=== PATIENT | male | born 1965 | race Caucasian/White ===

== ENCOUNTER 2017-09-17 16:59 | Emergency (ER) | payer OTHER ==
[~2017-09-17] VITALS: Ht 170.2 cm; Wt 99.7 kg
[~2017-09-17 16:59] MED LIST: CHOL100010 PO; CYAN100020 PO; FEXO180T PO; IBUP-103 PO; MULT-506 PO
[2017-09-17 17:07] VITALS: TEMP 36.9; Ht 170.2 cm; Wt 99.7 kg
[2017-09-17] MEDS ORDERED: SODIUM CHLORIDE 0.9% 1000ML 1,000 ML IV STA (17:19)
[2017-09-17 17:42] LABS: BASO % 0.1 %; BASO ABS # 0.01 K/uL (0-0.2); COMPLETE YES; EOS % 0.6 %; HEMATOCRIT 47.9 % (42-52); IG% 0.3 %; LYMPH ABS # 1.18 K/uL (1.2-3.4); MEAN CELL VOLUME 89.2 fL (80-100); MEAN CORPUSCULAR HEMOGLOBIN 31.3 pg (25-34); MEAN CORPUSCULAR HGB CONC 35.1 g/dl (32-36); MEAN PLATELET VOLUME 10.5 fL (7.4-10.4); MONO % 5.2 %; NEUT % 83.8 %; PLATELET COUNT 257 K/uL (130-400); RED BLOOD COUNT 5.37 M/uL (4.7-6.1); WHITE BLOOD COUNT 11.83 K/uL (4.8-10.8)
[2017-09-17] MEDS ORDERED: MoRPHine SULFATE 4 MG/ML 1 ML CARP\\VIAL IV STA (17:49)
[2017-09-17] MEDS ORDERED: ONDANSETRON INJ 2 MG/ML 2 ML VIAL IV STA (17:49)
[2017-09-17 18:01] LABS: BUN/CREATININE RATIO 18.4 (10-20); CALCIUM 9.1 mg/dl (8.5-10.1); CREATININE 1.16 mg/dl (0.60-1.40); POTASSIUM 3.7 mmol/L (3.5-5.1)
[2017-09-17] MEDS ORDERED: OPTIRAY 320 IV PRN (18:15)
--- NOTE | 2017-09-17 19:04 | DIAGNOSTIC IMAGING REPORT ---
CT SCAN OF THE ABDOMEN AND PELVIS WITH IV CONTRAST CLINICAL HISTORY: Left lower quadrant abdominal pain. COMPARISON STUDY: No priors. TECHNIQUE: Following the IV administration of 120 cc of Optiray 320, CT scan of the abdomen and pelvis is performed from the lung bases to the proximal femora. Images are reviewed in the axial, sagittal, and coronal planes. IV contrast was administered without complication. A dose lowering technique was utilized adhering to the principles of ALARA. CT DOSE: 871.69 mGy.cm FINDINGS: Lung bases: The heart is top normal in size and without pericardial effusion. The lung bases are clear. Liver: The contrast-enhanced liver is enlarged, measuring 19.4 cm in length. The liver demonstrates diminished attenuation consistent with hepatic steatosis. Fatty sparing is seen adjacent to gallbladder fossa. There is no intrahepatic biliary ductal dilatation. The hepatic veins and portal veins are patent. Gallbladder: Unremarkable. Spleen: Normal in size and attenuation. Pancreas: Unremarkable. Adrenal glands: Unremarkable. Kidneys: The contrast enhanced kidneys are normal in size and without hydronephrosis. The kidneys enhance symmetrically. Abdominal vasculature: The abdominal aorta is normal in course and caliber. Stomach and bowel: There is moderate sigmoid diverticulosis without CT evidence of acute diverticulitis. The stomach is distended and filled with fluid. The proximal small bowel loops are also distended and fluid-filled measuring up to 3.3 cm in caliber. These gradually transitions to decompressed distal small bowel loops. No transition point is identified. Mild wall thickening suggested involving a loop of small bowel the left lower quadrant image #227. The appendix is well-visualized and normal. Peritoneum: There is no intraperitoneal free air or abdominal ascites. There is a small fat-containing umbilical hernia. Lymphadenopathy: None. Pelvic viscera: The bladder, prostate, and seminal vesicles are normal as visualized. There is a fat-containing right inguinal hernia. Skeletal structures: No lytic or blastic lesions are seen. IMPRESSION: 1. The stomach is distended and filled with fluid. The proximal small bowel is also distended and fluid-filled, and this gradually transitions to relatively normal caliber distal small bowel. No discrete transition point is identified. Additionally, mildly thick walled small bowel are questioned in the left lower quadrant. The appearance suggests a nonspecific enteritis. Clinical correlation required. 2. No high-grade small bowel obstruction is seen. 3. No intraperitoneal free air is identified. 4. Moderate sigmoid diverticulosis without CT evidence of acute diverticulosis. 5. Hepatomegaly and mild hepatic steatosis. 6. Additional findings as above. Electronically signed by: Jf Avila M.D. 09/17/2017 7:03 PM Dictated Date/Time: 09/17/2017 6:56 PM
[2017-09-17 19:11] LABS: URINE APPEARANCE CLEAR (CLEAR); URINE BILIRUBIN NEG (NEG); URINE COLOR YELLOW; URINE NITRITE NEG (NEG); URINE SPECIFIC GRAVITY 1.037 (1.000-1.030); UROBILINOGEN NEG (NEG)
[2017-09-17 19:25] LABS: MANUAL MICROSCOPIC REQUIRED? NO; REVIEW REQ? NO
[2017-09-17] MEDS ORDERED: ONDA4TAB10 SL (19:30)
[2017-09-17] MEDS ORDERED: OXYC1TAB3 PO (19:30)
[2017-09-17 19:43] VITALS: BP 154/89; PULSE 79; O2SAT 98
--- NOTE | 2017-09-17 20:07 | EMERGENCY ROOM VISIT NOTE ---
History First contact with patient: 17:19 Chief Complaint: ABDOMINAL PAIN Stated Complaint: ABDOMINAL PAIN History of Present Illness The patient is a 51 year old male who presents to the Emergency Room with complaints of left lower and lower central abdominal pain that is worsening since awakening this morning. The patient reports that he did have an episode of vomiting this morning, and loose stools approximately 3 hours ago. He reports the pain is radiating into the lower back as well. He denies any difficulty urinating. The patient also reports a low-grade fever of 99-100F area the patient reports that he just underwent a colonoscopy last Sunday by Dr. Felix at [facility]. He was found to have diverticulosis and a few polyps that were removed. He has not heard back biopsy results. The patient denies any bloody stool or pain immediately after his colonoscopy. The patient currently rates his overall discomfort a 6 out of 10. He reports that the pain is now mostly constant and worsened with movement and ambulation. The pain is somewhat better when he sits up. Review of Systems HEENT: Denies dizziness, visual problems, hearing loss, tinnitus. Denies difficulty swallowing or oral lesions. PULMONARY: Denies cough, shortness of breath, sputum production or hemoptysis. CARDIOVASCULAR: Denies chest pain, palpitations, dyspnea on exertion, orthopnea or peripheral edema. GASTROINTESTINAL: See history of present illness. GENITOURINARY: Denies dysuria, frequency, urgency or nocturia. NEUROLOGIC: Denies history of epilepsy, CVA, TIA or chronic headaches. MUSCULOSKELETAL: Denies history of joint tenderness/swelling. SKIN: Denies rashes or lesions. PSYCHIATRIC: Denies history of depression or mental illness. ENDOCRINE: Denies history of diabetes or thyroid disorders. Past Medical/Surgical History Medical Problems: (1) Diverticulosis (2) Separation of right acromioclavicular joint Social History Smoking Status: Never Smoker Current/Historical Medications Scheduled Cholecalciferol (Vitamin D), 1,000 INTER.UNIT PO DAILY Cyanocobalamin (Vitamin B12), 1,000 MCG PO DAILY Fexofenadine Hcl ([place] Allergy), 180 MG PO DAILY Multivitamin (Multivitamin), 1 TAB PO DAILY Ondasetron Odt (Zofran Odt), 4 MG SL Q6H Scheduled PRN Ibuprofen Tab (Advil), 800 MG PO Q8 PRN for Pain or Fever Oxycodone Ir (Roxicodone Ir), 1-2 TAB PO Q4H PRN for Pain Physical Exam Vital Signs Date Time Temp Pulse Resp B/P (MAP) Pulse Ox O2 Delivery O2 Flow Rate FiO2 09/17/17 19:43 79 18 154/89 98 09/17/17 17:07 36.9 84 20 163/100 95 Room Air Physical Exam CONSTITUTIONAL: Healthy and well nourished. Alert and oriented X 3 with positive affect. Patient appears in moderate discomfort. HEENT: Normocephalic, atraumatic. Pupils equal, round and reactive. No scleral icterus or conjunctival injection/pallor. NECK: Full active range of motion without discomfort. RESPIRATORY: Clear to auscultation bilaterally with no wheezing, crackles, rhonchi or stridor. CARDIOVASCULAR: Regular rate and rhythm with no murmurs, rubs or gallops. GASTROINTESTINAL: Bowel sounds present in all quadrants. The patient has diffuse left lower quadrant tenderness to palpation without rigidity, guarding or rebound. Negative CVA tenderness. No right lower quadrant tenderness to palpation. MUSCULOSKELETAL: Full range of motion of all joints without discomfort. INTEGUMENTARY: No rash or other significant dermatologic conditions noted. HEMATOLOGIC: No ecchymosis or petechiae. NEUROLOGIC: No focal neurologic deficits noted. Medical Decision & Procedures ER Provider Diagnostic Interpretation: CT SCAN OF THE ABDOMEN AND PELVIS WITH IV CONTRAST CLINICAL HISTORY: Left lower quadrant abdominal pain. COMPARISON STUDY: No priors. TECHNIQUE: Following the IV administration of 120 cc of Optiray 320, CT scan of the abdomen and pelvis is performed from the lung bases to the proximal femora. Images are reviewed in the axial, sagittal, and coronal planes. IV contrast was administered without complication. A dose lowering technique was utilized adhering to the principles of ALARA. CT DOSE: 871.69 mGy.cm FINDINGS: Lung bases: The heart is top normal in size and without pericardial effusion. The lung bases are clear. Liver: The contrast-enhanced liver is enlarged, measuring 19.4 cm in length. The liver demonstrates diminished attenuation consistent with hepatic steatosis. Fatty sparing is seen adjacent to gallbladder fossa. There is no intrahepatic biliary ductal dilatation. The hepatic veins and portal veins are patent. Gallbladder: Unremarkable. Spleen: Normal in size and attenuation. Pancreas: Unremarkable. Adrenal glands: Unremarkable. Kidneys: The contrast enhanced kidneys are normal in size and without hydronephrosis. The kidneys enhance symmetrically. Abdominal vasculature: The abdominal aorta is normal in course and caliber. Stomach and bowel: There is moderate sigmoid diverticulosis without CT evidence of acute diverticulitis. The stomach is distended and filled with fluid. The proximal small bowel loops are also distended and fluid-filled measuring up to 3.3 cm in caliber. These gradually transitions to decompressed distal small bowel loops. No transition point is identified. Mild wall thickening suggested involving a loop of small bowel the left lower quadrant image #227. The appendix is well-visualized and normal. Peritoneum: There is no intraperitoneal free air or abdominal ascites. There is a small fat-containing umbilical hernia. Lymphadenopathy: None. Pelvic viscera: The bladder, prostate, and seminal vesicles are normal as visualized. There is a fat-containing right inguinal hernia. Skeletal structures: No lytic or blastic lesions are seen. IMPRESSION: 1. The stomach is distended and filled with fluid. The proximal small bowel is also distended and fluid-filled, and this gradually transitions to relatively normal caliber distal small bowel. No discrete transition point is identified. Additionally, mildly thick walled small bowel are questioned in the left lower quadrant. The appearance suggests a nonspecific enteritis. Clinical correlation required. 2. No high-grade small bowel obstruction is seen. 3. No intraperitoneal free air is identified. 4. Moderate sigmoid diverticulosis without CT evidence of acute diverticulosis. 5. Hepatomegaly and mild hepatic steatosis. 6. Additional findings as above. Laboratory Results 09/17/17 17:29 Red Blood Count 5.37, Mean Corpuscular Volume 89.2, Mean Corpuscular Hemoglobin 31.3, Mean Corpuscular Hemoglobin Concent 35.1, Mean Platelet Volume 10.5, Neutrophils (%) (Auto) 83.8, Lymphocytes (%) (Auto) 10.0, Monocytes (%) (Auto) 5.2, Eosinophils (%) (Auto) 0.6, Basophils (%) (Auto) 0.1, Neutrophils # (Auto) 9.93, Lymphocytes # (Auto) 1.18, Monocytes # (Auto) 0.61, Eosinophils # (Auto) 0.07, Basophils # (Auto) 0.01 09/17/17 17:29 Test 09/17/17 17:29 09/17/17 18:55 White Blood Count 11.83 K/uL (4.8-10.8) Red Blood Count 5.37 M/uL (4.7-6.1) Hemoglobin 16.8 g/dL (14.0-18.0) Hematocrit 47.9 % (42-52) Mean Corpuscular Volume 89.2 fL (80-100) Mean Corpuscular Hemoglobin 31.3 pg (25-34) Mean Corpuscular Hemoglobin Concent 35.1 g/dl (32-36) Platelet Count 257 K/uL (130-400) Mean Platelet Volume 10.5 fL (7.4-10.4) Neutrophils (%) (Auto) 83.8 % Lymphocytes (%) (Auto) 10.0 % Monocytes (%) (Auto) 5.2 % Eosinophils (%) (Auto) 0.6 % Basophils (%) (Auto) 0.1 % Neutrophils # (Auto) 9.93 K/uL (1.4-6.5) Lymphocytes # (Auto) 1.18 K/uL (1.2-3.4) Monocytes # (Auto) 0.61 K/uL (0.11-0.59) Eosinophils # (Auto) 0.07 K/uL (0-0.5) Basophils # (Auto) 0.01 K/uL (0-0.2) RDW Standard Deviation 43.3 fL (36.4-46.3) RDW Coefficient of Variation 13.3 % (11.5-14.5) Immature Granulocyte % (Auto) 0.3 % Immature Granulocyte # (Auto) 0.03 K/uL (0.00-0.02) Anion Gap 7.0 mmol/L (3-11) Est Creatinine Clear Calc Drug Dose 86.7 ml/min Estimated GFR () 85.2 Estimated GFR (Non- 73.5 BUN/Creatinine Ratio 18.4 (10-20) Calcium Level 9.1 mg/dl (8.5-10.1) Total Bilirubin 0.7 mg/dl (0.2-1) Direct Bilirubin 0.1 mg/dl (0-0.2) Aspartate Amino Transf (AST/SGOT) 22 U/L (15-37) Alanine Aminotransferase (ALT/SGPT) 35 U/L (12-78) Alkaline Phosphatase 81 U/L (45-117) Total Protein 7.4 gm/dl (6.4-8.2) Albumin 3.6 gm/dl (3.4-5.0) Lipase 66 U/L (73-393) Urine Color YELLOW Urine Appearance CLEAR (CLEAR) Urine pH 6.0 (4.5-7.5) Urine Specific [employer] 1.037 (1.000-1.030) Urine Protein NEG (NEG) Urine Glucose (UA) NEG (NEG) Urine Ketones NEG (NEG) Urine Occult Blood NEG (NEG) Urine Nitrite NEG (NEG) Urine Bilirubin NEG (NEG) Urine Urobilinogen NEG (NEG) Urine Leukocyte Esterase NEG (NEG) The above labs were reviewed. The patient does have an elevated white count with left shift and bandemia. Remaining labs, including partially and profile, LFTs, lipase and urinalysis are normal. Medications Administered Medications (Trade) Dose Ordered Sig/Eduar Route Start Time Stop Time Status Last Admin Dose Admin Sodium Chloride 1,000 ml @ 999 mls/hr Q1H1M STAT IV 09/17/17 17:19 09/17/17 18:19 DC 09/17/17 17:55 999 MLS/HR Morphine Sulfate (MoRPHine SULFATE INJ) 4 mg NOW STAT IV 09/17/17 17:49 09/17/17 17:50 DC 09/17/17 17:56 4 MG Ondansetron HCl (Zofran Inj) 4 mg NOW STAT IV 09/17/17 17:49 09/17/17 17:50 DC 09/17/17 17:55 4 MG Procedure 1. IV hydration: Normal saline 1 L bolus 2. IV medications: The patient was initially administered morphine 4 mg and Zofran 4 mg IVP. ED Course Patient history and physical exam were performed. Nurse's notes were reviewed. Vital signs were reviewed. The patient is hypertensive with a blood pressure 163/100. He is afebrile and has normal pulse rate. IV access was established, and labs were drawn. The patient was hydrated with a liter normal saline. He refused any analgesics or antiemetics on initial exam. Shortly thereafter, the nurse advised me that the patient did change his mind and wanted something for pain. He was administered IV morphine and Zofran. Review of labs shows a leukocytosis with left shift and bandemia. Remaining labs, including LFTs, lipase, urinalysis and partial renal profile were normal. CT of the abdomen and pelvis with IV contrast shows evidence for an enteritis. No diverticulitis , appendicitis or other acute findings were noted. The patient was advised that his CT findings and labs. He was encouraged to follow-up with his PCP in 48 hours for recheck, returning to the emergency department sooner for any developing fever, worsening pain or persistent vomiting. He was given instructions on a clear liquid diet. The patient was provided prescriptions for OxyIR 5 mg and Zofran ODT. He was administered an additional his Dilaudid 0.5 mg IVP prior to discharge, was happy with plan of care, and rated his discomfort a 4 out of 10 at the time of discharge. Medical Decision As indicated in the previous section, CT findings are consistent with an enteritis. There is no evidence for diverticulitis, appendicitis, bowel obstruction or other acute findings on CT. Urinalysis is not suggestive of UTI or kidney stone. I do not suspect musculoskeletal etiology or refer testicular pain. [facility] Monitoring Program Search Results: patient reviewed within database, no issues identified Medication Reconcilliation Current Medication List: was personally reviewed by [facility] Blood Pressure Screening Patient's blood pressure: Normal blood pressure Impression Primary Impression: Gastroenteritis Departure Information Prescriptions Oxycodone Ir (Roxicodone Ir) 5 Mg Tab 1-2 TAB PO Q4H Y for Pain, #15 TAB For Initial Treatment Prov: Stefano Cope PA 09/17/17 Ondasetron Odt (ZOFRAN ODT) 4 Mg Tab 4 MG SL Q6H for Nausea, #10 TAB Prov: Stefano Cope PA 09/17/17 Referrals Del Fowler M.D. (PCP) Patient Instructions My [facility]
== END 2017-09-17 19:44 | disposition home or self-care (01) ==
LOC: C.EDB 17:00 → C.EDA 19:44
DX: K52.9 Noninfective gastroenteritis and colitis, unspecified (principal); K57.90 Diverticulosis of intestine, part unspecified, without perforation or abscess without bleeding

== ENCOUNTER 2017-12-03 18:25 | Emergency (ER) | payer OTHER ==
[~2017-12-03] VITALS: Ht 170.2 cm; Wt 96.3 kg
[~2017-12-03 18:25] MED LIST changes: -CYAN100020 PO; -IBUP-103 PO; -MULT-506 PO; +ONDA4TAB10 SL; +OXYC1TAB3 PO
[2017-12-03 18:28] VITALS: TEMP 36.5; Ht 170.2 cm; Wt 96.3 kg
[2017-12-03 19:10] VITALS: O2SAT 97
[2017-12-03] MEDS ORDERED: SODIUM CHLORIDE 0.9% 1000ML 2,000 ML IV STA (19:11)
[2017-12-03] MEDS ORDERED: METOCLOPRAMIDE HCL INJ 5 MG/ML 2 ML VIAL IV. STA (19:11)
[2017-12-03] MEDS ORDERED: DiphenhydrAMINE HCL 50 MG/ML VIAL IV STA (19:11)
--- NOTE | 2017-12-03 19:20 | EMERGENCY ROOM VISIT NOTE ---
History Report prepared by Prashant: Brianna Wyatt Under the Supervision of: Dr. Haroon Nation M.D. First contact with patient: 18:36 Chief Complaint: NEURO SYMPTOMS Stated Complaint: DIZZY, NAUSEA History of Present Illness The patient is a 51 year old male who presents to the Emergency Room with complaints of persistent dizziness that began about 6 hours prior to arrival. He reports that this morning he had right eye pain, which felt internal. The patient states that while he was at work, he began to feel like the room was spinning, noting it worsens when he closes his eyes. He was able to stay at work for 2 hours with his symptoms, but reports that they are still persistent. He reports that his discomfort feels like he has a concussion, noting he has not hit his head recently. The patient denies having symptoms similar to these in the past or any recent illnesses such as burning with urination, chest pain, shortness of breath, nausea, vomiting, or diarrhea. Source of History: patient Onset: 6 hours priot to arrival Position: other (global) Quality: other (dizziness) Timing: other (persistent) Associated Symptoms: No chest pain, No SOB, No nausea, No vomiting, No diarrhea Note: Patient denies: burning with urination Review of Systems See HPI for pertinent positives and negatives. A total of ten systems were reviewed and were otherwise negative. Past Medical & Surgical Medical Problems: (1) Diverticulosis (2) Separation of right acromioclavicular joint Family History Cancer Social History Smoking Status: Never Smoker Smokeless Tobacco Use: No Alcohol Use: occasionally Drug Use: none Marital Status: in relationship Housing Status: lives with significant other Occupation Status: employed Current/Historical Medications Scheduled Cholecalciferol (Vitamin D 1000 Unit), 1,000 INTER.UNIT PO DAILY Cyanocobalamin (Vitamin B12), 1,000 MCG PO DAILY Diphenhydramine Hcl (Benadryl Allergy), 50 MG PO PRN UD Fexofenadine Hcl (Chetna), 180 MG PO DAILY Multivitamin (Multivitamin), 1 TAB PO DAILY Ondasetron Odt (Zofran Odt), 4 MG SL Q6H Ondasetron Odt (Zofran Odt), 4 MG SL Q6H Scheduled PRN Ibuprofen Tab (Advil), 800 MG PO Q8 PRN for Pain or Fever Meclizine Hcl (Meclizine Hcl), 25 MG PO TID PRN for Dizziness Allergies Coded Allergies: No Known Allergies (Unverified , 09/17/17) Physical Exam Vital Signs Date Time Temp Pulse Resp B/P (MAP) Pulse Ox O2 Delivery O2 Flow Rate FiO2 12/03/17 23:36 84 20 128/78 98 12/03/17 22:32 65 20 127/77 98 Room Air 12/03/17 21:00 88 20 124/79 98 Room Air 12/03/17 20:21 79 20 133/75 98 Room Air 12/03/17 19:29 74 12/03/17 19:10 97 Room Air 12/03/17 18:28 36.5 72 20 150/92 95 Room Air Physical Exam GENERAL: Awake, alert, uncomfortable, fatigued-appearing, in no distress HENT: Dry mucous membranes. Bilateral nystagmus. TM clear bilaterally. Normocephalic, atraumatic. Oropharynx unremarkable. EYES: Normal conjunctiva. Sclera non-icteric. NECK: Supple. No nuchal rigidity. FROM. No JVD. RESPIRATORY: Clear to auscultation. CARDIAC: Regular rate, normal rhythm. Extremities warm and well perfused. Pulses equal. ABDOMEN: Soft, non-distended. No tenderness to palpation. No rebound or guarding. No masses. RECTAL: Deferred. MUSCULOSKELETAL: Chest examination reveals no tenderness. The back is symmetrical on inspection without obvious abnormality. There is no CVA tenderness to palpation. No joint edema. LOWER EXTREMITIES: Calves are equal size bilaterally and non-tender. No edema. No discoloration. NEURO: Reproducible symptoms with head movements. Normal motor and sensory. normal cerebellar function with kdfyob-[id number]-[id number], alternating palms, wtqo-mi-boos SKIN: No rash or jaundice noted. Medical Decision & Procedures ER Provider Diagnostic Interpretation: Radiology results as stated below per my review and radiologist interpretation: Brain MRI WITHOUT CONTRAST HISTORY: vertigo TECHNIQUE: Multiplanar multisequence MRI of the brain was performed without the use of contrast. COMPARISON STUDY: Head CTA and head CTA 12/03/2017. FINDINGS: There is no mass, hematoma, midline shift, or acute infarct. The paranasal sinuses are clear. The mastoid air cells are clear. The ventricles and sulci are within normal limits. A few punctate foci of T2 hyperintensity seen within the periventricular and subcortical white matter are nonspecific but suggestive of minimal microvascular ischemic changes. The major vascular flow voids at the skull base are well-maintained. IMPRESSION: No acute intracranial abnormality. Electronically signed by: Gene Toure M.D. 12/03/2017 10:25 PM Dictated Date/Time: 12/03/2017 10:19 PM HEAD CTA HISTORY: Stroke symptoms. TECHNIQUE: Multiaxial CT images of the head were performed after the intravenous administration of contrast to evaluate the major cerebral vessels. Maximum intensity projection images were also obtained. A dose lowering technique was utilized adhering to the principles of ALARA. COMPARISON: Head CT 12/03/2017. FINDINGS: There is no mass, hematoma, midline shift, or acute infarct. Visualized intracranial internal carotid arteries, distal vertebral arteries, and basilar artery are widely patent. There is no significant stenosis, occlusion, or aneurysm seen within the bilateral ACAs, MCAs, or renovation plant supervisor. IMPRESSION: No significant stenosis, occlusion, or aneurysm within the [place]. Electronically signed by: Gene Toure M.D. 12/03/2017 7:54 PM Dictated Date/Time: 12/03/2017 7:49 PM NECK CTA HISTORY: Stroke symptoms. TECHNIQUE: Multiaxial CT images of the neck were performed following the intravenous administration of contrast to evaluate the major cervical vessels. Maximum intensity projection images were also obtained. All measurements were calculated based on NASCET criteria. A dose lowering technique was utilized adhering to the principles of ALARA. COMPARISON STUDY: None. FINDINGS: The aortic arch and proximal great vessels are widely patent. There is no significant stenosis, occlusion, or dissection identified within the bilateral common carotid, internal carotid, or vertebral arteries. The left vertebral artery is slightly hypoplastic in comparison to the right. IMPRESSION: No significant stenosis, occlusion, or dissection identified within the carotid or vertebral arteries. Electronically signed by: Gene Toure M.D. 12/03/2017 8:01 PM Dictated Date/Time: 12/03/2017 7:54 PM CHEST ONE VIEW PORTABLE HISTORY: Stroke symptoms. COMPARISON: Chest 02/05/2012. FINDINGS: The cardiac silhouette is borderline enlarged. This may be accentuated by the AP portable technique and low lung volumes. The lungs are clear. No pleural fusions. No pneumothorax. Right suprahilar density is likely due to the overlapping first rib. IMPRESSION: No acute process. Electronically signed by: Gene Toure M.D. 12/03/2017 7:34 PM Dictated Date/Time: 12/03/2017 7:[address] CT DOSE: HISTORY: Stroke symptoms. TECHNIQUE: Multiaxial CT images of the head were performed without the use of intravenous contrast. Automated exposure control was utilized for this study. A dose lowering technique was utilized adhering to the principles of ALARA. Comparison: None. Findings: The paranasal sinuses and mastoid air cells are clear. The calvarium and skull base are intact. The ventricles and sulci are within normal limits. There is no mass, hematoma, midline shift, or acute infarct. Impression: No acute intracranial abnormality. Electronically signed by: Gene Toure M.D. 12/03/2017 7:49 PM Dictated Date/Time: 12/03/2017 7:44 PM Laboratory Results 12/03/17 19:10 Red Blood Count 5.15, Mean Corpuscular Volume 87.2, Mean Corpuscular Hemoglobin 31.1, Mean Corpuscular Hemoglobin Concent 35.6, Mean Platelet Volume 10.4, Neutrophils (%) (Auto) 77.4, Lymphocytes (%) (Auto) 16.5, Monocytes (%) (Auto) 4.8, Eosinophils (%) (Auto) 0.8, Basophils (%) (Auto) 0.2, Neutrophils # (Auto) 8.17, Lymphocytes # (Auto) 1.74, Monocytes # (Auto) 0.51, Eosinophils # (Auto) 0.08, Basophils # (Auto) 0.02 12/03/17 19:10 Test 12/03/17 19:10 12/03/17 19:14 12/03/17 19:32 12/03/17 20:28 White Blood Count 10.55 K/uL (4.8-10.8) Red Blood Count 5.15 M/uL (4.7-6.1) Hemoglobin 16.0 g/dL (14.0-18.0) Hematocrit 44.9 % (42-52) Mean Corpuscular Volume 87.2 fL (80-100) Mean Corpuscular Hemoglobin 31.1 pg (25-34) Mean Corpuscular Hemoglobin Concent 35.6 g/dl (32-36) Platelet Count 270 K/uL (130-400) Mean Platelet Volume 10.4 fL (7.4-10.4) Neutrophils (%) (Auto) 77.4 % Lymphocytes (%) (Auto) 16.5 % Monocytes (%) (Auto) 4.8 % Eosinophils (%) (Auto) 0.8 % Basophils (%) (Auto) 0.2 % Neutrophils # (Auto) 8.17 K/uL (1.4-6.5) Lymphocytes # (Auto) 1.74 K/uL (1.2-3.4) Monocytes # (Auto) 0.51 K/uL (0.11-0.59) Eosinophils # (Auto) 0.08 K/uL (0-0.5) Basophils # (Auto) 0.02 K/uL (0-0.2) RDW Standard Deviation 42.3 fL (36.4-46.3) RDW Coefficient of Variation 13.2 % (11.5-14.5) Immature Granulocyte % (Auto) 0.3 % Immature Granulocyte # (Auto) 0.03 K/uL (0.00-0.02) Prothrombin Time 10.6 SECONDS (9.0-12.0) Prothromb Time International Ratio 1.0 (0.9-1.1) Activated Partial Thromboplast Time 23.1 SECONDS (21.0-31.0) Partial Thromboplastin Ratio 0.9 Est Creatinine Clear Calc Drug Dose 84.5 ml/min Estimated GFR () 84.3 Estimated GFR (Non- 72.8 BUN/Creatinine Ratio 21.0 (10-20) Calcium Level 9.0 mg/dl (8.5-10.1) Magnesium Level 2.6 mg/dl (1.8-2.4) Total Creatine Kinase 93 U/L (39-308) Creatine Kinase MB 0.7 ng/ml (0.5-3.6) Creatine Kinase MB Ratio 0.8 (0-3.0) Troponin I < 0.015 ng/ml (0-0.045) Bedside Hemoglobin 15.3 g/dl (14.0-18.0) Bedside Hematocrit 45 % (42-52) Bedside Sodium 138 mEq/L (135-144) Bedside Potassium 4.0 mEq/L (3.3-5.0) Bedside Chloride 99 mEq/L (101-112) Bedside Total CO2 28 mEq/l (24-31) Anion Gap 16.0 mmol/L (16-25) Bedside Blood Urea Nitrogen 26 mg/dl (7-18) Bedside Creatinine 1.0 mg/dl (0.6-1.3) Bedside Glucose (other) 101 mg/dl (70-99) Bedside Ionized Calcium (Min) 1.19 mmol/l (1.12-1.32) Bedside Prothrombin Time INR 1.0 (0.9-1.1) Urine Color YELLOW Urine Appearance CLEAR (CLEAR) Urine pH 6.5 (4.5-7.5) Urine Specific [place] 1.025 (1.000-1.030) Urine Protein NEG (NEG) Urine Glucose (UA) NEG (NEG) Urine Ketones NEG (NEG) Urine Occult Blood NEG (NEG) Urine Nitrite NEG (NEG) Urine Bilirubin NEG (NEG) Urine Urobilinogen NEG (NEG) Urine Leukocyte Esterase NEG (NEG) Laboratory results reviewed by me Medications Administered Medications (Trade) Dose Ordered Sig/Eduar Route Start Time Stop Time Status Last Admin Dose Admin Sodium Chloride 2,000 ml @ 999 mls/hr Q2H1M STAT IV 12/03/17 19:11 12/03/17 21:11 DC 12/03/17 19:52 999 MLS/HR Diphenhydramine HCl (Benadryl Inj) 25 mg NOW STAT IV 12/03/17 19:11 12/03/17 19:14 DC 12/03/17 19:11 25 MG Metoclopramide HCl (Reglan Inj) 10 mg NOW STAT IV. 12/03/17 19:11 12/03/17 19:14 DC 12/03/17 19:11 10 MG Sodium Chloride 1,000 ml @ 999 mls/hr Q1H1M STAT IV 12/03/17 21:17 12/03/17 22:17 DC 12/03/17 21:17 999 MLS/HR Meclizine HCl (Antivert Tab) 25 mg NOW STAT PO 12/03/17 21:17 12/03/17 21:22 DC 12/03/17 21:33 25 MG ECG Per My Interpretation Indication: other (dizziness) Rate (beats per minute): 74 Rhythm: normal sinus Findings: no acute ischemic change, other (normal axis) ED Course 1836: The patient was evaluated in room A2. A complete history and physical exam was performed. 2104: I reevaluated the patient, who was resting comfortably. I updated him on some test findings. 2237: I reevaluated the patient. Discussed results and discharge instructions: he verbalized understanding and agreement. The patient is ready for discharge. Medical Decision I reviewed the patient's past medical history, medications, and the nursing notes as described above. Differential diagnosis: Etiologies such as peripheral vertigo, metabolic, infection, hypo/hyperglycemia , electrolyte abnormalities, cardiac sources, intracerebral event, toxicologic, neurologic, as well as others were entertained. The patient is a 51-year-old gentleman who presents emergency Department with symptoms of vertigo that began approximately at 1 PM per history of present illness. On arrival the patient is uncomfortable but no acute distress, afebrile stable vital signs. On exam, the patient has bilateral horizontal nystagmus and reproducible symptoms with head movements. Otherwise patient is neuro intact including normal cerebellar function with aodkuz-bp-[id number], alternating palms, nfge-[id number]. Labs unremarkable including WBC within normal limits. Chest x-ray negative. CTA of the head and neck negative for infarct or large vessel occlusion. MRI of the brain also unremarkable. Patient improved after IV fluids, Reglan, Benadryl, meclizine. Able to ambulate without difficulty. Given improvement and reassuring w/u, sx most likley peripheral. Findings and plan for follow-up reviewed with patient. Patient agreeable and d/c'd per discharge instructions. Findings and plan for follow-up reviewed with patient. Patient agreeable and d/c'd per discharge instructions. Medication Reconcilliation Current Medication List: was personally reviewed by me Blood Pressure Screening Patient's blood pressure: Normal blood pressure Blood pressure disposition: Did not require urgent referral Impression Primary Impression: Vertigo Scribe Attestation The scribe's documentation has been prepared under my direction and personally reviewed by me in its entirety. I confirm that the note above accurately reflects all work, treatment, procedures, and medical decision making performed by me. Departure Information Dispostion Home / Self-Care Prescriptions Ondasetron Odt (ZOFRAN ODT) 4 Mg Tab 4 MG SL Q6H for Nausea, #10 TAB Prov: Haroon Nation M.D. 12/03/17 Meclizine Hcl (MECLIZINE HCL) 25 Mg Tab 25 MG PO TID Y for Dizziness, #21 TAB Prov: Haroon Nation M.D. 12/03/17 Referrals Del Fowler M.D. (PCP) Forms HOME CARE DOCUMENTATION FORM, IMPORTANT VISIT INFORMATION, WORK / SCHOOL INSTRUCTIONS Patient Instructions ED BPV Vertigo, ED Vertigo Unspecified, [facility] Additional Instructions Please follow up with your primary care physician in the next 1-3 days for re- evaluation. Your symptoms are most likely due to peripheral vertigo. Otherwise, your exam, EKG, chest xray, lab results, CT scan of your head and neck with contrast, and MRI of your brain did not show signs of an emergent condition at this time. Meclizine for recurrent vertigo as needed as directed. Zofran as needed for nausea. Drink plenty of fluids to ensure hydration. Return to the emergency department for worsening symptoms as described in the accompanying instructions.
[2017-12-03 19:28] LABS: ISTAT IONIZED CALCIUM 1.19 mmol/l (1.12-1.32)
[2017-12-03] MEDS ORDERED: OPTIRAY 320 IV PRN (19:30)
[2017-12-03 19:34] LABS: BASO % 0.2 %; BASO ABS # 0.02 K/uL (0-0.2); EOS % 0.8 %; EOS ABS # 0.08 K/uL (0-0.5); HEMATOCRIT 44.9 % (42-52); IG# 0.03 K/uL (0.00-0.02); LYMPH % 16.5 %; LYMPH ABS # 1.74 K/uL (1.2-3.4); MEAN CELL VOLUME 87.2 fL (80-100); MEAN CORPUSCULAR HEMOGLOBIN 31.1 pg (25-34); MEAN CORPUSCULAR HGB CONC 35.6 g/dl (32-36); MEAN PLATELET VOLUME 10.4 fL (7.4-10.4); MONO % 4.8 %; MONO ABS # 0.51 K/uL (0.11-0.59); NEUT % 77.4 %; NEUT ABS # 8.17 K/uL (1.4-6.5); PLATELET COUNT 270 K/uL (130-400); RED CELL DISTRIBUTION WIDTH CV 13.2 % (11.5-14.5); RED CELL DISTRIBUTION WIDTH SD 42.3 fL (36.4-46.3); WHITE BLOOD COUNT 10.55 K/uL (4.8-10.8)
--- NOTE | 2017-12-03 19:35 | DIAGNOSTIC IMAGING REPORT ---
CHEST ONE VIEW PORTABLE HISTORY: Stroke symptoms. COMPARISON: Chest 02/05/2012. FINDINGS: The cardiac silhouette is borderline enlarged. This may be accentuated by the AP portable technique and low lung volumes. The lungs are clear. No pleural fusions. No pneumothorax. Right suprahilar density is likely due to the overlapping first rib. IMPRESSION: No acute process. Electronically signed by: Gene Toure M.D. 12/03/2017 7:34 PM Dictated Date/Time: 12/03/2017 7:31 PM
[2017-12-03 19:46] LABS: PTT PATIENT 23.1 SECONDS (21.0-31.0)
--- NOTE | 2017-12-03 19:50 | DIAGNOSTIC IMAGING REPORT ---
HEAD CT NONCONTRAST CT DOSE: HISTORY: Stroke symptoms. TECHNIQUE: Multiaxial CT images of the head were performed without the use of intravenous contrast. Automated exposure control was utilized for this study. A dose lowering technique was utilized adhering to the principles of ALARA. Comparison: None. Findings: The paranasal sinuses and mastoid air cells are clear. The calvarium and skull base are intact. The ventricles and sulci are within normal limits. There is no mass, hematoma, midline shift, or acute infarct. Impression: No acute intracranial abnormality. Electronically signed by: Gene Toure M.D. 12/03/2017 7:49 PM Dictated Date/Time: 12/03/2017 7:44 PM
[2017-12-03 19:51] LABS: BLOOD UREA NITROGEN 25 mg/dl (7-18); CARBON DIOXIDE 26 mmol/L (21-32); CREATININE 1.17 mg/dl (0.60-1.40); GLUCOSE 93 mg/dl (70-99); POTASSIUM 3.9 mmol/L (3.5-5.1); SODIUM 137 mmol/L (136-145)
[2017-12-03 19:56] LABS: CKMB 0.7 ng/ml (0.5-3.6)
--- NOTE | 2017-12-03 19:56 | DIAGNOSTIC IMAGING REPORT ---
HEAD CTA HISTORY: Stroke symptoms. TECHNIQUE: Multiaxial CT images of the head were performed after the intravenous administration of contrast to evaluate the major cerebral vessels. Maximum intensity projection images were also obtained. A dose lowering technique was utilized adhering to the principles of ALARA. COMPARISON: Head CT 12/03/2017. FINDINGS: There is no mass, hematoma, midline shift, or acute infarct. Visualized intracranial internal carotid arteries, distal vertebral arteries, and basilar artery are widely patent. There is no significant stenosis, occlusion, or aneurysm seen within the bilateral ACAs, MCAs, or independent agent music education. IMPRESSION: No significant stenosis, occlusion, or aneurysm within the [place]. Electronically signed by: Gene Toure M.D. 12/03/2017 7:54 PM Dictated Date/Time: 12/03/2017 7:49 PM
--- NOTE | 2017-12-03 20:02 | DIAGNOSTIC IMAGING REPORT ---
NECK CTA HISTORY: Stroke symptoms. TECHNIQUE: Multiaxial CT images of the neck were performed following the intravenous administration of contrast to evaluate the major cervical vessels. Maximum intensity projection images were also obtained. All measurements were calculated based on NASCET criteria. A dose lowering technique was utilized adhering to the principles of ALARA. COMPARISON STUDY: None. FINDINGS: The aortic arch and proximal great vessels are widely patent. There is no significant stenosis, occlusion, or dissection identified within the bilateral common carotid, internal carotid, or vertebral arteries. The left vertebral artery is slightly hypoplastic in comparison to the right. IMPRESSION: No significant stenosis, occlusion, or dissection identified within the carotid or vertebral arteries. Electronically signed by: Gene Toure M.D. 12/03/2017 8:01 PM Dictated Date/Time: 12/03/2017 7:54 PM
[2017-12-03] MEDS ORDERED: FEXO1TAB46 PO (20:39)
[2017-12-03] MEDS ORDERED: DIPH1TAB87 PO (20:39)
[2017-12-03] MEDS ORDERED: CHOL100027 PO (20:39)
[2017-12-03] MEDS ORDERED: MECLIZINE HCL 25 MG TAB PO STA (21:17)
[2017-12-03] MEDS ORDERED: SODIUM CHLORIDE 0.9% 1000ML 1,000 ML IV STA (21:17)
[2017-12-03] MEDS ORDERED: MULT-506 PO (22:05)
[2017-12-03] MEDS ORDERED: CYAN100020 PO (22:05)
[2017-12-03] MEDS ORDERED: IBUP-103 PO (22:05)
--- NOTE | 2017-12-03 22:27 | DIAGNOSTIC IMAGING REPORT ---
Brain MRI WITHOUT CONTRAST HISTORY: vertigo TECHNIQUE: Multiplanar multisequence MRI of the brain was performed without the use of contrast. COMPARISON STUDY: Head CTA and head CTA 12/03/2017. FINDINGS: There is no mass, hematoma, midline shift, or acute infarct. The paranasal sinuses are clear. The mastoid air cells are clear. The ventricles and sulci are within normal limits. A few punctate foci of T2 hyperintensity seen within the periventricular and subcortical white matter are nonspecific but suggestive of minimal microvascular ischemic changes. The major vascular flow voids at the skull base are well-maintained. IMPRESSION: No acute intracranial abnormality. Electronically signed by: Gene Toure M.D. 12/03/2017 10:25 PM Dictated Date/Time: 12/03/2017 10:19 PM
[2017-12-03] MEDS ORDERED: MECL1TAB42 PO (23:22)
[2017-12-03] MEDS ORDERED: ONDA4TAB10 SL (23:22)
[2017-12-03 23:36] VITALS: BP 128/78; PULSE 84; O2SAT 98
== END 2017-12-03 23:38 | disposition home or self-care (01) ==
LOC: C.EDB 18:26 → C.EDA 23:38
DX: R42 Dizziness and giddiness (principal); H55.00 Unspecified nystagmus; K57.90 Diverticulosis of intestine, part unspecified, without perforation or abscess without bleeding